=== PATIENT | female | born 1950 | race African-American/Black ===

== ENCOUNTER 2017-06-03 13:51 | Observation (INO) ==
--- NOTE | 2017-06-03 14:05 | EKG Report ---
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
[2017-06-03 15:02] LABS: Basophils % 0.5 % (0.0-0.8); Eosinophils % 0.8 % (0.00-10.9); Hemoglobin 14.8 GM/DL (12.0-16.0); Immature Granulocytes % 0.3 %; Immature Granulocytes Absolute 0.01 #; Lymphocytes # 1.6 10*3/uL (1.4-4.0); Lymphocytes % 44.5 % (21.3-54.2); Mean Corpuscular HGB Conc 33.6 GM/DL (32-36); Mean Corpuscular Hemoglobin 29 PG (27-34); Mean Corpuscular Volume 86.4 FL (87-102); Mean Platelet Volume 10.6 FL (9.6-12.0); Monocytes # 0.4 10*3/uL (0.11-0.8); Monocytes % 9.6 % (1.7-12.7); Neutrophils # 1.6 10*3/uL (1.4-7.4); Neutrophils % 44.3 % (38.7-73.9); Platelet Count 206 T/CUMM (130-400); Red Blood Count 5.09 MC/CUMM (3.8-5.5); Red Cell Distribution Width 12.9 % (9.3-17.3); White Blood Count 3.6 T/CUMM (4-12)
[2017-06-03 15:12] LABS: PT Patient Result 10.6 SECS; Partial Thromboplastin Time 29.3 SECS (0-40)
[2017-06-03 15:22] LABS: Magnesium 2.3 MG/DL (1.8-2.4)
[2017-06-03 15:38] LABS: Albumin 4.2 G/DL (3.4-5.0); Bilirubin,Total 0.5 MG/DL (0.2-1.0); Calcium 10.1 MG/DL (8.5-10.1); Osmolality,Calculated 275.5 MOS/KG (273-304); Potassium 4.1 MMOL/L (3.5-5.1)
[2017-06-03 15:39] LABS: Troponin I Only < 0.015 NG/ML (0.00-0.045)
[2017-06-03] MEDS ORDERED: ALUM/MAG/SIMETH/LIDO VISC 1:1 30 ML BOTTLE PO STA (15:41)
[2017-06-03] MEDS ORDERED: FAMOTIDINE 20 MG/2 ML VIAL IV STA (15:41)
[2017-06-03] MEDS ORDERED: NITROGLYCERIN 2% OINT 1 INCH/GM PACK TOP STA (15:41)
[2017-06-03] MEDS ORDERED: METOPROLOL TARTRATE 5 MG/5 ML VIAL IV STA (15:41)
[2017-06-03] MEDS ORDERED: ASPIRIN 325 MG TABLET PO STA (15:41)
--- NOTE | 2017-06-03 15:51 | Emergency Department Note ---
Olivia Caban Mantricia, am scribing for, and in the presence of, Frederick Talbert MD 15:45. Gali Caban James D, MD, personally performed the services described in this documentation, ascribed by Perri Baker in my presence, and it is both accurate and complete [id number] . Arrival - Arrival Chief Complaint: Chest Pain Stated Complaint: dull chest pain, nervous ED Nursing Triage Note: C/o epigastric pain radiating into chest and throat- onset appx 0800 this morning. Pain worse after drinking coffee, no relief after taking Nexium. Reports feeling "nervous"--states that she has been very stressed recently and thinks this may be related. +SOB. +Diaphoresis. Mode of Arrival: Ambulatory Limitations: No Limitations Source: Patient, RN Notes Reviewed Time Seen by Provider: 06/03/17 15:40 - History of Present Illness HPI Narrative: Pt is a 66 y/o black female ambulating to ED with c/o chest pain that onset 0800 this morning. She states that the pain is dull with radiation to her mid- epigastrium. She reports that she initially became diaphoretic but denies any nausea. She denies any worsening with exertion or eating. She denies any relief after taking a Nexium this morning. Pt states that she has been stressed lately , which also may be a cause of her pain. She reports that she had a benign stress test performed about 4 years ago. Pt denies taking an ASA due to side effects years ago when she was prescribed them so her PCP weened her off. At time of exam, pt's heart rate is 94 with a blood pressure of 154/99. Pt's PCP is Dr. Medrano. No other complaints were reported to ED. Onset (ago): hour(s) Consistency: constant Severity: moderate Date of Last Menstrual Period: hysterectomy Allergies/Adverse Reactions: Allergies Allergy/AdvReac Type Severity Reaction Status Date / Time metronidazole [From Flagyl] Allergy Unknown/Unable Verified 06/03/17 14:09 to obtain Review of System - Review of System 12 point system: reviewed and no additional remarkable complaints except as stated - Review of System Constitutional: Present: diaphoresis. Absent: chills, fever Head/Ears/Nose/Throat: Absent: earache Respiratory: Absent: cough Cardiovascular: Present: chest pain Gastrointestinal: Present: abdominal pain (epigastric). Absent: nausea, vomiting, diarrhea Musculoskeletal: Absent: arm pain, back pain, leg pain, neck pain Medical,Surgical,& Family Hx - Medical History Cardio: History of: Hypertension - Surgical History Reproductive Surgeries: Surgical HX of;: Hysterectomy - Social History Smoking Status: Never smoker Frequency of Alcohol Use: None Type of Drug Use: None Exam Vital Signs: Vital Signs Temperature 98.2 F 06/03/17 14:00 Pulse Rate 91 H 06/03/17 14:50 Respiratory Rate 18 06/03/17 14:50 Blood Pressure 177/92 06/03/17 14:50 O2 Sat by Pulse Oximetry 100 06/03/17 14:50 Course - Consultations Consultation #1: Discussed with hospitalist. Patient will be admitted to their service. Time: 15:49 Results - Labs CBC & BMP: 06/03/17 14:44 06/03/17 14:44 Lab Results: I have reviewed the patients labs Labs: Laboratory Tests 06/03/17 14:44 Troponin I < 0.015 - EKG EKG results: interpreted by ERMD - Impressions EKG: Normal sinus rhythm with a rate of 89, nonspecific ST-T wave changes, normal axis. - Diagnostic Findings Procedure: Chest x-ray: image reviewed by me Disposition Clinical Impression: Chest pain, Essential hypertension Case discussed with: patient Disposition: Still a Patient Condition: Stable Time of Disposition: 15:49
[2017-06-03] MEDS ORDERED: ASPIRIN 325 MG TABLET ONE (16:17)
[2017-06-03] MEDS ORDERED: ALUM/MAG/SIMETH/LIDO VISC 1:1 30 ML BOTTLE PO ONE (16:17)
[2017-06-03] MEDS ORDERED: METOPROLOL TARTRATE 5 MG/5 ML VIAL IV ONE (16:17)
[2017-06-03] MEDS ORDERED: NITROGLYCERIN 2% OINT 1 INCH/GM PACK TOP ONE (16:17)
[2017-06-03] MEDS ORDERED: FAMOTIDINE 20 MG/2 ML VIAL IV ONE (16:18)
--- NOTE | 2017-06-03 16:18 | XRay Report ---
2 view chest. Indication: Chest pain. The heart and mediastinal contours are unremarkable. The pulmonary vasculature is normal. There is no consolidation, pneumothorax, or pleural effusion. The osseous structures are unremarkable. Surgical clips in the right upper quadrant. Impression: No abnormality is seen. PROCEDURE INTERPRETED AT [facility] DEPARTMENT OF RADIOLOGY Final Report Signed by: Dr. Pattie Dixon
--- NOTE | 2017-06-03 16:48 | Hospitalist History & Physical ---
<Rhonda Cha - Last Filed: 06/03/17 16:45> Assessment and Plan (1) Chest pain Status: Acute Assessment and plan: Admit to monitored bed. Serial ekgs. Serial troponins. Echo ordered for am. Supplemental O2 as needed. tsh in am. bmp/cbc normal now. check in am. Current Visit: Yes (2) Essential hypertension Status: Acute Assessment and plan: Restart po meds. prn IV antihypertensives. Current Visit: Yes History of Present Illness Chief complaint: chest pain History of present illness: Ms. Cote is a 66 year old female with a history of hypertension that presents to the ED today with complaints of chest pain. Pt. states that she was at home this morning when the pain started around 930. Pt. describes the pain as dull with no radiation. She rates it a 6 on a scale of 0-10. Pt reports that she ate fish and greens before bed last night and initally thought it was heartburn. She took an Omprepazole with the pain first started but didn't express any immediate relief. She states she got up and started cleaning and the pain subsided slightly before coming back again. She also states that she took a Norvasc 5 mg around 1145. She normally takes the medicine at bedtime but she is unsure of whether she took it last night. After that the pain "calmed down" but she still didn't feel right. She presented for evaluation. She is also stressed due to personal issues with her son. Additionally, anuj reports a significant family history of heart disease. Her mom, grandmom, and other members of her mom 's side of the family has heart disease. On evaluation, initial workup is negative. CXR negative. Cardiac enzymes are negative but pt is hypertensive. However, due to strong family history, pt will be admitted overnight for observation. Case discussed with Dr. Talbert and Dr. Skinner. Home meds reviewed and reconciled. Home Medications Medication Instructions Recorded Confirmed Type Amlodipine Besylate [Amlodipine 5 mg PO DAILY 06/03/17 06/03/17 History Besylate] Ascorbic Acid [Vitamin C] 500 mg PO QAM 06/03/17 06/03/17 History Cholecalciferol (Vitamin D3) 2,000 unit PO QAM 06/03/17 06/03/17 History [Vitamin D3] Esomeprazole Magnesium [Nexium] 20 mg PO DAILY 06/03/17 06/03/17 History Multivitamin [One Daily 1 each PO DAILY 06/03/17 06/03/17 History Multivitamin] [place]-3/Dha/Epa/Fish Oil [Fish Oil 1 each PO QAM 06/03/17 06/03/17 History 1,000 mg Softgel] Allergies Allergy/AdvReac Type Severity Reaction Status Date / Time metronidazole [From Flagyl] Allergy Unknown/Unable Verified 06/03/17 14:09 to obtain Medical,Surgical,& Family Hx - Medical History Cardio: History of: Hypertension - Surgical History Reproductive Surgeries: Surgical HX of;: Hysterectomy - Family History Family History: Reports;: Family Heart Disease (mom, grandmom, brother) - Social History Smoking Status: Never smoker Frequency of Alcohol Use: None Type of Drug Use: None Marital Status: Lives With:: Spouse Functional capacity: independent ambulation 12 point system: reviewed and no additional remarkable complaints except as stated - Constitutional Constitutional: Absent: chills, fever(s) - EENT Eyes: Absent: blurry vision Ears: Absent: decreased hearing - Cardiovascular Cardiovascular: Present: chest pain at rest. Absent: dyspnea on exertion, edema , radiating jaw, neck or arm pain - Respiratory Respiratory: Absent: cough - Gastrointestinal Gastrointestinal: Absent: abdominal pain, nausea, vomiting - Genitourinary Genitourinary: Absent: difficulty urinating, urinary frequency - Musculoskeletal Musculoskeletal: Absent: back pain - Neurological Neurological: Absent: confusion, dizziness - Psychiatric Psychiatric: Present: anxiety. Absent: memory loss - Endocrine Endocrine: Absent: fatigue - Hematologic/Lymphatic Hematologic/Lymphatic: Absent: easy bleeding, easy bruising Exam - Constitutional Vitals: Period Temp Pulse Resp BP Sys/Benitez Pulse Ox Last 24 Hr 98.2 F 90-91 18-18 149-177/92-97 98-100 General appearance: no acute distress, over weight - Head Head exam: Present: normal inspection, normocephalic - Eye Eye exam: Present: EOMI Pupils: Present: MAXI - Neck Neck exam: Present: normal inspection - Respiratory Respiratory exam: Present: clear to auscultation bilaterally. Absent: wheezes - Cardiovascular Cardiovascular exam: Present: regular rate and rhythm - GI/Abdominal GI/Abdominal exam: Present: normal bowel sounds, soft. Absent: tenderness - Extremities Exam Extremities exam: Present: normal capillary refill, full ROM. Absent: edema - Neurological Exam Neurological exam: Present: alert, oriented X3 - Psychiatric Psychiatric exam: Present: anxious - Skin Skin exam: Present: normal color, warm, dry Results - Labs CBC & BMP: 06/03/17 14:44 06/03/17 14:44 Lab Results: I have reviewed the past 24 hour labs <SusanneAnnette R - Last Filed: 06/03/17 18:10> Assessment and Plan (1) Chest pain Status: Acute Assessment and plan: courtesy consult dr. Beard. Sounds gi continue pepcid and gi cocktails Current Visit: Yes (2) Essential hypertension Status: Acute Assessment and plan: cont home norvasc, added coreg Current Visit: Yes History of Present Illness History of present illness: Ms. Cote is a 66 year old female seen and examined. Sounds like gi only. Alot of stress due to son. Exam - Constitutional Vitals: Period Temp Pulse Resp BP Sys/Benitez Pulse Ox Last 24 Hr 98.2 F-98.2 F 89-91 18-18 149-177/92-97 98-100 - Eye Eye exam: Present: conjunctival injection. Absent: scleral icterus - ENT ENT exam: Present: normal exam, normal external ear exam - Cardiovascular Cardiovascular exam: Absent: systolic murmur - Neurological Exam Neurological exam: Present: CN II-XII intact, reflexes normal. Absent: motor sensory deficit - Psychiatric Psychiatric exam: Present: depressed Results - Labs CBC & BMP: 06/03/17 14:44 06/03/17 14:44 - EKG EKG shows: sinus rhythm (no st changes ) - Diagnostic Findings Procedure: Chest x-ray: report reviewed by me (nothing acute )
[2017-06-03] MEDS ORDERED: ONDANSETRON 4 MG/2 ML VIAL IV PRN (18:15)
[2017-06-03] MEDS ORDERED: ACETAMINOPHEN 325 MG TABLET PO PRN (18:15)
[2017-06-03] MEDS: CARVEDILOL 3.125 MG TABLET PO SCH ×2 (18:29→20:38)
[2017-06-04 05:42] LABS: Basophils % 0.5 % (0.0-0.8); Hematocrit 40.9 VOL% (35.7-47.0); Hemoglobin 13.5 GM/DL (12.0-16.0); Immature Granulocytes % 0.8 %; Immature Granulocytes Absolute 0.03 #; Lymphocytes # 2.2 10*3/uL (1.4-4.0); Lymphocytes % 57.1 % (21.3-54.2); Mean Corpuscular Hemoglobin 29 PG (27-34); Mean Corpuscular Volume 86.3 FL (87-102); Mean Platelet Volume 10.5 FL (9.6-12.0); Monocytes # 0.4 10*3/uL (0.11-0.8); Monocytes % 9.3 % (1.7-12.7); Neutrophils # 1.2 10*3/uL (1.4-7.4); Neutrophils % 31.3 % (38.7-73.9); Platelet Count 189 T/CUMM (130-400); Red Blood Count 4.74 MC/CUMM (3.8-5.5); Red Cell Distribution Width 13.1 % (9.3-17.3); White Blood Count 3.9 T/CUMM (4-12)
[2017-06-04 06:22] LABS: Calcium 9.3 MG/DL (8.5-10.1); Magnesium 2.3 MG/DL (1.8-2.4); Osmolality,Calculated 279.4 MOS/KG (273-304); Potassium 4.1 MMOL/L (3.5-5.1); Risk Ratio 4.87; Thyroid Stimulating Hormone 5.01 uIU/ml (0.358-3.74); VLDL CHOLESTEROL 25.6 MG/DL
[2017-06-04 07:18] LABS: Apearance,Urine CLEAR (Clear); Bilirubin,Urine Negative (Negative); Blood, Urine Negative (Negative); Glucose,Urine (UA) Negative (Negative); Ketones,Urine Negative (Negative); Mucus,Urine Occasional /LPF (Occasional); Nitrite,Urine Negative (Negative); Protein,Urine Negative; RBC,Urine <1 /HPF (0-4); Urine Color Straw (Yellow); Urine Specific Gravity 1.006 (1.001-1.035); Urine Urobilinogen < 2.0 EU/DL (0.2-1.0); WBC,Urine 1 /HPF (0-6)
--- NOTE | 2017-06-04 07:32 | EKG Report ---
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
[2017-06-04 07:37] LABS: Lymphocytes 67 % (20-55); Macrocytosis 1+; Microcytosis 2+; Platelet Estimate Adequate; Segmented Neutrophils 23 % (50-85); Total Cells Counted 100
[2017-06-04 08:57] VITALS: BP 138/84
[2017-06-04] MEDS ORDERED: amLODIPine 5 MG TABLET PO SCH (09:00)
[2017-06-04] MEDS ORDERED: PANTOPRAZOLE 40 MG TABLET PO SCH (09:00)
[2017-06-04] MEDS: CARVEDILOL 3.125 MG TABLET PO SCH (09:21)
--- NOTE | 2017-06-04 09:21 | Discharge Summary ---
<Rhonda Cha - Last Filed: 06/04/17 09:15> Hospital Course - Hospital Course Hospital Course: Ms. Cote is a 66 year old female with a history of hypertension that presents to the ED on 06/04 with complaints of chest pain. Pt. states that she was at home when the pain started around 930 am. Pt. described the pain as dull with no radiation. Pt reports she initally thought it was heartburn. She took an Omprepazole when the pain first started but didn't express any immediate relief. She also states that she took a Norvasc 5 mg around 1145 am. She normally takes the medicine at bedtime but she is unsure of whether she took the night before. After the pain "calmed down" but she still didn't feel right. She presented for evaluation. Initial workup was negative. CXR negative. Cardiac enzymes are negative and the EKG is unremarkable. Patient received the most relief when she had a GI cocktail done in the emergency room. I will give her Protonix 40 mg p.o. twice daily. This is strictly GI this is not cardiac in nature. I will have her follow with Dr. Guerin in 2 weeks because if the pain is not better she may need an EGD. We will have her follow-up with Dr. Beard in 1 month at which time he can determine if it is necessary for her to have a stress test. I will not be sending her home on an aspirin as that will make her GI issues worse at this point and I strongly suspect she has an ulcer. Patient to follow-up with her primary care doctor in 1-2 weeks for blood pressure check. Patient seen and examined. Hospital course reviewed and edited. Diagnosis - Discharge Diagnosis (1) Chest pain Status: Acute (2) Essential hypertension Status: Acute Discharge Plan - Discharge Data Disposition: Disch To Home/Self Care - Discharge Medications New Pantoprazole Tab [Protonix Tab] 40 mg PO BID #60 tablet Carvedilol [Coreg] 3.125 mg PO BID #60 tablet Continue [place]-3/Dha/Epa/Fish Oil [Fish Oil 1,000 mg Softgel] 1 each PO QAM Cholecalciferol (Vitamin D3) [Vitamin D3] 2,000 unit PO QAM Multivitamin [One Daily Multivitamin] 1 each PO DAILY Amlodipine Besylate 5 mg PO DAILY Discontinued Esomeprazole Magnesium [Nexium] 20 mg PO DAILY Ascorbic Acid [Vitamin C] 500 mg PO QAM - Follow Up or Referral Follow Up: Avelino Guerin MD [Physician] - 2 Weeks Jey Beard MD [Physician] - 1 Month pmdr jessica [Other] - 1 Week (blood pressure check ) - Forms/Instructions Exam - Constitutional Vitals: Period Temp Pulse Resp BP Sys/Benitez Pulse Ox Last 24 Hr 97.4 F-98.2 F 68-91 16-18 105-177/58-97 95-100 Discharge Results Labs on day of discharge: Labs from last 24 hours 06/04/17 06/04/17 06/04/17 09:15 05:06 05:06 WBC RBC Hgb Hct MCV MCH MCHC RDW Plt Count MPV Neut % (Auto) Lymph % (Auto) [place] % (Auto) Eos % (Auto) Baso % (Auto) Neut # (Auto) Lymph # (Auto) [place] # (Auto) Eos # (Auto) Baso # (Auto) Total Counted Immature Gran % Nucleated RBC % Immature Gran # Segmented Neutrophils Lymphocytes Monocytes Nucleated RBCs # Platelet Estimate Immature Plt Fraction Microcytosis Macrocytosis INR PT Patient/Control Mix Circ Anticoag PTT Sodium Potassium Chloride Carbon Dioxide Anion Gap BUN Creatinine GFR Calculation BUN/Creatinine Ratio Glucose Hemoglobin A1c 7.0 H Calculated Osmolality Calcium Magnesium Total Bilirubin AST ALT Alkaline Phosphatase Total Creatine Kinase CK-MB (CK-2) Troponin I < 0.015 B-Natriuretic Peptide Total Protein Albumin Globulin Albumin/Globulin Ratio Triglycerides Cholesterol LDL Cholesterol VLDL Cholesterol HDL Cholesterol Heart Disease Risk Ratio Lipase Free T4 0.87 TSH 3rd Generation Urine Color Urine Appearance Urine pH Ur Specific [place] Urine Protein Urine Glucose (UA) Urine Ketones Urine Blood Urine Nitrate Urine Bilirubin Urine Urobilinogen Urine Leukocytes Urine RBC Urine WBC Urine Mucus Ur Culture Indicated? 06/04/17 06/04/17 06/03/17 05:06 05:06 18:15 WBC 3.9 L RBC 4.74 Hgb 13.5 Hct 40.9 MCV 86.3 L MCH 29 MCHC 33.0 RDW 13.1 Plt Count 189 MPV 10.5 Neut % (Auto) 31.3 L Lymph % (Auto) 57.1 H [place] % (Auto) 9.3 Eos % (Auto) 1.0 Baso % (Auto) 0.5 Neut # (Auto) 1.2 L Lymph # (Auto) 2.2 [place] # (Auto) 0.4 Eos # (Auto) 0.0 Baso # (Auto) 0.0 Total Counted 100 Immature Gran % 0.8 Nucleated RBC % 0.0 Immature Gran # 0.03 Segmented Neutrophils 23 L Lymphocytes 67 H Monocytes 10 Nucleated RBCs # 0.00 Platelet Estimate Adequate Immature Plt Fraction 0.0 Microcytosis 2+ Macrocytosis 1+ INR PT Patient/Control Mix Circ Anticoag PTT Sodium 140 Potassium 4.1 Chloride 106 Carbon Dioxide 29 Anion Gap 9.1 BUN 13 Creatinine 1.00 GFR Calculation 75 BUN/Creatinine Ratio 13.00 Glucose 110 H Hemoglobin A1c Calculated Osmolality 279.4 Calcium 9.3 Magnesium 2.3 Total Bilirubin AST ALT Alkaline Phosphatase Total Creatine Kinase CK-MB (CK-2) Troponin I B-Natriuretic Peptide Total Protein Albumin Globulin Albumin/Globulin Ratio Triglycerides 128 Cholesterol 224 H LDL Cholesterol 161.0 VLDL Cholesterol 25.6 HDL Cholesterol 46 Heart Disease Risk Ratio 4.87 Lipase Free T4 TSH 3rd Generation 5.010 H Urine Color Straw Urine Appearance Clear Urine pH 6.0 Ur Specific [place] 1.006 Urine Protein Negative Urine Glucose (UA) Negative Urine Ketones Negative Urine Blood Negative Urine Nitrate Negative Urine Bilirubin Negative Urine Urobilinogen < 2.0 H Urine Leukocytes Trace Urine RBC <1 Urine WBC 1 Urine Mucus Occasional Ur Culture Indicated? Not indicated 06/03/17 06/03/17 06/03/17 14:44 14:44 14:44 WBC RBC Hgb Hct MCV MCH MCHC RDW Plt Count MPV Neut % (Auto) Lymph % (Auto) [place] % (Auto) Eos % (Auto) Baso % (Auto) Neut # (Auto) Lymph # (Auto) [place] # (Auto) Eos # (Auto) Baso # (Auto) Total Counted Immature Gran % Nucleated RBC % Immature Gran # Segmented Neutrophils Lymphocytes Monocytes Nucleated RBCs # Platelet Estimate Immature Plt Fraction Microcytosis Macrocytosis INR 1.0 PT Patient/Control Mix 10.6 Circ Anticoag PTT 29.3 Sodium Potassium Chloride Carbon Dioxide Anion Gap BUN Creatinine GFR Calculation BUN/Creatinine Ratio Glucose Hemoglobin A1c Calculated Osmolality Calcium Magnesium 2.3 Total Bilirubin AST ALT Alkaline Phosphatase Total Creatine Kinase CK-MB (CK-2) Troponin I B-Natriuretic Peptide 14 Total Protein Albumin Globulin Albumin/Globulin Ratio Triglycerides Cholesterol LDL Cholesterol VLDL Cholesterol HDL Cholesterol Heart Disease Risk Ratio Lipase 186.0 Free T4 TSH 3rd Generation Urine Color Urine Appearance Urine pH Ur Specific [place] Urine Protein Urine Glucose (UA) Urine Ketones Urine Blood Urine Nitrate Urine Bilirubin Urine Urobilinogen Urine Leukocytes Urine RBC Urine WBC Urine Mucus Ur Culture Indicated? 06/03/17 06/03/17 06/03/17 14:44 14:44 14:44 WBC 3.6 L RBC 5.09 Hgb 14.8 Hct 44.0 MCV 86.4 L MCH 29 MCHC 33.6 RDW 12.9 Plt Count 206 MPV 10.6 Neut % (Auto) 44.3 Lymph % (Auto) 44.5 [place] % (Auto) 9.6 Eos % (Auto) 0.8 Baso % (Auto) 0.5 Neut # (Auto) 1.6 Lymph # (Auto) 1.6 [place] # (Auto) 0.4 Eos # (Auto) 0.0 Baso # (Auto) 0.0 Total Counted Immature Gran % 0.3 Nucleated RBC % 0.0 Immature Gran # 0.01 Segmented Neutrophils Lymphocytes Monocytes Nucleated RBCs # 0.00 Platelet Estimate Immature Plt Fraction 0.0 Microcytosis Macrocytosis INR PT Patient/Control Mix Circ Anticoag PTT Sodium 139 Potassium 4.1 Chloride 105 Carbon Dioxide 27 Anion Gap 11.1 BUN 10 Creatinine 1.00 GFR Calculation 75 BUN/Creatinine Ratio 10.00 Glucose 98 Hemoglobin A1c Calculated Osmolality 275.5 Calcium 10.1 Magnesium Total Bilirubin 0.50 AST 14 ALT 19 Alkaline Phosphatase 44 L Total Creatine Kinase 167 CK-MB (CK-2) 1.1 Troponin I < 0.015 B-Natriuretic Peptide Total Protein 8.0 Albumin 4.2 Globulin 3.8 H Albumin/Globulin Ratio 1.1 Triglycerides Cholesterol LDL Cholesterol VLDL Cholesterol HDL Cholesterol Heart Disease Risk Ratio Lipase Free T4 TSH 3rd Generation Urine Color Urine Appearance Urine pH Ur Specific [place] Urine Protein Urine Glucose (UA) Urine Ketones Urine Blood Urine Nitrate Urine Bilirubin Urine Urobilinogen Urine Leukocytes Urine RBC Urine WBC Urine Mucus Ur Culture Indicated? DS: Provider Date of admission: 06/03/17 16:36 Primary care physician: Mauricio Medrano MD Attending physician on admission: Annette Skinner MD Consults: 06/04/17 07:18 Consult to Physician [CONS] Routine Comment: courtesy consult / cp / patient known to you Consulting Provider: Jey Beard Person Notified: Sona Date Notified: 06/04/17 Time Notified: 08:12 Discharging clinician: Rhonda hCa NP <Annette Skinner - Last Filed: 06/04/17 10:57> Hospital Course - Time spent with patient Time with patient DS: Less than 30 minutes (25 min) Diagnosis - Discharge Diagnosis (1) Chest pain Status: Acute (2) Essential hypertension Status: Acute Discharge Plan - Discharge Data Condition at Discharge: Stable Discharge Diet: other (soft diet ) Activity: resume usual activities as tolerated Hygiene: no restrictions Weight Bearing at Discharge: full weight bearing Driving: no restrictions - Forms/Instructions Additional Discharge Instructions: No eating 4 hours before going to bed. Avoid tomato-based substances citrusy, things high in sugar or caffeine or chocolate. Drink plenty of water. Exam - Constitutional General appearance: no acute distress, over weight - Respiratory Respiratory exam: Present: clear to auscultation bilaterally - Cardiovascular Cardiovascular exam: Present: regular rate and rhythm. Absent: systolic murmur - GI/Abdominal GI/Abdominal exam: Present: normal bowel sounds, soft. Absent: tenderness - Extremities Exam Extremities exam: Present: normal inspection, normal capillary refill
[2017-06-04] MEDS ORDERED: ALUM/MAG/SIMETH/LIDO VISC 1:1 30 ML BOTTLE PO STA (09:48)
== END 2017-06-04 14:20 | disposition home or self-care (01) ==
LOC: N.ED 13:51 → N.EDINP 13:51 → N.5E 18:08
PROVIDERS: ADMIT Internal Medicine; ATTEND Internal Medicine